=== PATIENT | female | born 1945 | race Caucasian/White ===

== ENCOUNTER 2024-05-07 14:10 | Emergency (ER) | payer BC ==
[~2024-05-07] VITALS: Ht 162.6 cm; Wt 91.6 kg
[2024-05-07] MEDS ORDERED: HYDR-4275 PO (19:12)
[2024-05-07] MEDS ORDERED: NALO4SPR BNOSTRILS (19:12)
[2024-05-07] MEDS ORDERED: DOCU-141 PO (19:12)
[2024-05-07 20:53] VITALS: BP 133/80; TEMP 98.2; O2SAT 98
== END 2024-05-07 20:53 | disposition home or self-care (01) ==
LOC: ER 14:25
DX: S52.571A Other intraarticular fracture of lower end of right radius, initial encounter for closed fracture (principal); S42.212A Unspecified displaced fracture of surgical neck of left humerus, initial encounter for closed fracture; S52.611A Displaced fracture of right ulna styloid process, initial encounter for closed fracture; S52.501A Unspecified fracture of the lower end of right radius, initial encounter for closed fracture; S52.502A Unspecified fracture of the lower end of left radius, initial encounter for closed fracture; S52.692A Other fracture of lower end of left ulna, initial encounter for closed fracture; M47.812 Spondylosis without myelopathy or radiculopathy, cervical region; W01.0XXA Fall on same level from slipping, tripping and stumbling without subsequent striking against object, initial encounter; Y93.89 Activity, other specified; Y92.89 Other specified places as the place of occurrence of the external cause; Y99.8 Other external cause status
CPT/HCPCS: 29125; 70450; 70486; 72125; 73030; 73110; 73130; 99285; A6403